=== PATIENT | female | born 1995 | race Two or more races ===

== ENCOUNTER 2018-12-23 15:56 | Emergency (ER) | payer OTHER ==
[~2018-12-23] VITALS: Ht 157.5 cm; Wt 48.0 kg
[2018-12-23 18:10] VITALS: BP 130/89
== END 2018-12-23 18:18 | disposition home or self-care (01) ==
LOC: ER 15:56
DX: M08.09 Unspecified juvenile rheumatoid arthritis, multiple sites (principal)
CPT/HCPCS: 99283

== ENCOUNTER 2018-12-28 15:25 | Emergency (ER) | payer MEDICAID, OTHER ==
[~2018-12-28] VITALS: Ht 157.5 cm; Wt 48.0 kg
[2018-12-28 16:01] VITALS: BP 119/85
[2018-12-28] MEDS ORDERED: PREDNISONE 20MG TABLET PO ONE (19:00)
== END 2018-12-28 19:17 | disposition home or self-care (01) ==
LOC: ER 15:25
DX: M08.8 Other juvenile arthritis (principal)
CPT/HCPCS: 99283; J7512

== ENCOUNTER 2019-01-22 15:16 | Emergency (ER) | payer MEDICAID ==
[~2019-01-22] VITALS: Ht 157.5 cm; Wt 47.0 kg
[2019-01-22 15:23] VITALS: BP 148/95
[2019-01-22 16:28] LABS: BASOPHILS % 0.5 % (0.0-2.0); EOSINOPHILS % 0.5 % (0.0-5.0); HEMATOCRIT. 39.4 % (36.0-48.0); HEMOGLOBIN. 12.8 g/dL (12.0-16.0); LYMPHOCYTES % 14.4 % (20.0-50.0); MEAN CORPUSCULAR HEMOGLOBIN 24.6 pg (28.0-32.0); MEAN CORPUSCULAR VOLUME 75.7 fL (81.0-99.0); MEAN PLATELET VOLUME 8.6 fl (7.4-10.4); MONOCYTES % 6.1 % (2.0-8.0); NEUTROPHILS % 78.5 % (40.0-76.0); PLATELET 291 x1000/uL (130-400); RED BLOOD CELL COUNT 5.21 mill/uL (4.2-5.4); RED CELL DISTRIBUTION WIDTH 27.2 % (11.6-14.6)
[2019-01-22 16:30] LABS: CHLORIDE 106 mEq/L (98-107)
[2019-01-22 17:01] LABS: PLATELET ESTIMATE NORMAL
== END 2019-01-22 17:09 | disposition home or self-care (01) ==
LOC: ER 15:16
DX: M06.9 Rheumatoid arthritis, unspecified (principal)
CPT/HCPCS: 36415; 80048; 99283